=== PATIENT | male | born 1985 | race Caucasian/White ===

== ENCOUNTER 2016-10-29 21:24 | Inpatient (IN) ==
[2016-10-29] MEDS ORDERED: *HR* LORazepam 2 MG/ML VIAL IM PRN (22:20)
[2016-10-29] MEDS ORDERED: Ibuprofen 400 MG TABLET PO PRN (22:20)
[2016-10-29] MEDS ORDERED: *HR* LORazepam 1 MG TABLET PO PRN (22:20)
[2016-10-29] MEDS: traZODone 50 MG TABLET PO PRN (22:40)
[2016-10-30] MEDS: Nicotine 7 MG PATCH.TD24 TD SCH (08:28)
--- NOTE | 2016-10-30 11:48 | Psychiatry History & Physical ---
Date of Encounter: 10/30/16 Time of Encounter: 11:00 History of Present Illness Patient Stated Chief Complaint: Depression and suicidal ideation Medicare Admission Attestation: For traditional Medicare patients the provided hospital inpatient services are reasonable and necessary and in the case of services not specified as inpatient -only under 42 CFR 419.22 (n), that they are appropriately provided as inpatient services in accordance 42 CFR 412.3. For Critical Access Hospital the patient may reasonably be expected to be discharged or transferred to a hospital within 96 hours after admission to the Critical Access Hospital. Admitted From: Hospital to Hospital Transfer (Evidence counted [facility]) History of Present Illness: Mr. Park is a 31 year old male admitted from [facility] for depression with suicidal ideation. Patient was concerned about his medication and feels a need to be changed. Reported depressed mood, increase in anxiety, paranoia and social phobia and suicidal ideation. Patient has a long history of psychiatric treatment and he had several diagnosis including bipolar, schizoaffective, Asperger syndrome and Tourette syndrome. Patient most recent hospitalization at [facility] was in 2014 where he was discharged on Haldol and doxepin. Patient states he had side effects from Haldol in the form of muscle stiffness and he was later placed on olanzapine. Patient complains that he gained significant weight on olanzapine and also experienced muscle stiffness. Patient is unemployed, has some college education and has not worked for the last one half years. Past Med Surg Social Fam HX - Past Medical History Medical history: no medical history - Past Psychiatric History Psychiatric history: Reports: anxiety, bipolar, depression, prior suicide attempt, previous psychiatric hospitalization Past psychiatric history details: Hospitalization at [facility] 2014, bipolar, Asperger, Tourette's, depression - Past Surgical History Surgical History: orthopedic, other - Social History Smoking Status: Current every day smoker Smokeless Tobacco Status: No Alcohol use: none Drug use: none Medications & Allergies OLANZapine [Zyprexa] 10 mg PO BID 10/29/16 [History] Allergies aspirin Allergy (Verified 10/29/16 22:18) See Comments "I get red and blothcy." Buspirone [From BuSpar] Allergy (Verified 10/29/16 22:18) See Comments "My tongue starts twitching." diphenhydramine [From Benadryl] Allergy (Verified 10/29/16 22:18) See Comments "I get red and blotchy." haloperidol [From Haldol] Allergy (Verified 10/29/16 22:18) See Comments "I get face paralysis." hydroxyzine Allergy (Verified 10/29/16 22:18) See Comments "I get red and blotchy." Review of Systems Psychiatric: Reports: depression, anxiety, suicidal ideation Mental Status Exam Patient orientation: Yes Person, Yes Time, Yes Place Level of alertness: Alert Patient appearance: Appropriate, Well Groomed Behavior: calm, cooperative, anxious, guarded Psychomotor activity: Normal Eye contact: Minimal Contact Mood description: Depressed, Anxious Affect description: congruent with mood, constricted Speech pattern: Normal rate, Normal rhythm, Normal tone, Limited Speech volume: Normal Thought process: Linear, Goal Oriented Thought content: Yes Suicidal ideation, No Homicidal ideation, No Overt delusions, Yes Paranoid delusion Perceptual disturbances: No Auditory hallucinations, No Visual hallucinations Attention span: Capable of Focused Attention Memory description: Grossly Intact Patient reliability: Reliable Historian Intelligence estimate: Average Judgment: Limited Insight: Partial Results - Vital Signs Vital signs: Temp Pulse Resp BP 98.3 F 75 16 124/82 10/30/16 08:53 10/30/16 08:53 10/30/16 08:53 10/30/16 08:53 Assessment and Plan (1) Schizoaffective disorder, bipolar type Current visit: Yes Status: Acute Plan: Admit inpatient for safety and stabilization, Close observation, Suicide Precautions per unit protocol, Encourage participation in unit milieu, Group Therapy, Monitor sleep, Monitor appetite Additional Plan: We will discontinue olanzapine due to side effects and start patient on Abilify 10 mg daily with history of response. Benefits side effects were discussed patient is agreeable and will monitor. Risks, benefits, side effects, alternatives discussed w/pt: Yes Patient agreeable to treatment: Yes
[2016-10-30] MEDS: ARIPiprazole 10 MG TABLET PO SCH (13:05)
[2016-10-30] MEDS: OLANZapine 10 MG TAB.RAPDIS PO SCH ×2 (13:05→20:33)
[2016-10-30] MEDS ORDERED: Ziprasidone injection 20 MG/ML VIAL IM PRN (17:29)
[2016-10-30] MEDS ORDERED: Ziprasidone 20 MG CAPSULE PO PRN (17:29)
[2016-10-30] MEDS: traZODone 50 MG TABLET PO PRN ×2 (20:33→21:45)
[2016-10-31 08:12] VITALS: BP 115/79
[2016-10-31] MEDS: Nicotine 7 MG PATCH.TD24 TD SCH (08:23)
[2016-10-31] MEDS: ARIPiprazole 10 MG TABLET PO SCH (08:23)
[2016-10-31] MEDS: OLANZapine 10 MG TAB.RAPDIS PO SCH (08:24)
--- NOTE | 2016-10-31 14:20 | Discharge Summary ---
Date of Encounter: 10/31/16 Time of Encounter: 11:30 Diagnosis - Discharge Diagnosis (1) Schizoaffective disorder, bipolar type Status: Acute Medications - Discharge Medications Prescriptions: Aripiprazole [Abilify] 10 mg PO DAILY #30 tablet Aripiprazole [Abilify] 10 mg PO DAILY #30 tablet 10/31/16 [Rx] Allergies aspirin Allergy (Verified 10/29/16 22:18) See Comments "I get red and blothcy." Buspirone [From BuSpar] Allergy (Verified 10/29/16 22:18) See Comments "My tongue starts twitching." diphenhydramine [From Benadryl] Allergy (Verified 10/29/16 22:18) See Comments "I get red and blotchy." haloperidol [From Haldol] Allergy (Verified 10/29/16 22:18) See Comments "I get face paralysis." hydroxyzine Allergy (Verified 10/29/16 22:18) See Comments "I get red and blotchy." Provider Date of admission: 10/29/16 21:24 Primary care physician: PCP NO Discharging clinician: Jacoby Jurado Assessment and Plan - Patient/Caregiver Discharge Instructions Activity: resume usual activities as tolerated Diet: regular diet - Follow up Plan Follow up with: Krys Sandra [Outside] (You will see Dr. María Mejía, psychiatrist, on 11/20/2016 at 8:30am.) Functional capacity at discharge: independent ambulation Overall status at discharge: Stable Disposition: Home, Self-Care Hospital Course Hospital course: Mr. Park is a 31 year old male admitted for suicidal ideation depression and medication side effects. For details admission please see H&P On the unit patient medication changed from olanzapine to Abilify. Patient responded well to medication and denies any side effects, he denied any suicidal ideation or paranoia. He reported good sleep and he participated in unit activities. Patient discharge plan was reviewed by the family welfare social work professor. Prior to discharge patient was medically stable and denied any suicidal ideation and did not present any paranoia or delusions. - Time Spent with Patient Total time spent providing and/or coordinating discharge services: Less than 30 minutes Quality - Multiple Antipsychotics Patient discharged on 2 or more antipsychotic medications: No Procedures - Procedures Procedures: Medication Management, Crisis Stabilization, Supportive Therapy, Group Therapy, Psychoeducational Therapy Mental Status Exam - Mental Status Exam Patient orientation: Yes Person, Yes Time, Yes Place Level of alertness: Alert Patient appearance: Appropriate, Well Groomed Behavior: calm, cooperative Psychomotor activity: Normal Eye contact: Maintains Eye Contact Mood description: Euthymic/stable Affect description: congruent with mood, blunted Speech pattern: Normal rate, Normal rhythm, Normal tone Speech Volume: Normal Thought process: Linear, Goal Oriented Thought Content: No Suicidal ideation, No Homicidal ideation, No Overt delusions Perceptual Disturbances: No Auditory hallucinations, No Visual hallucinations Judgment: Limited Insight: Partial
== END 2016-10-31 19:15 | disposition home or self-care (01) | DRG 750 ==
LOC: 1ANU 21:24
PROVIDERS: ADMIT Psychiatry & Neurology Psychiatry; ATTEND Psychiatry & Neurology Psychiatry